=== PATIENT | male | born 1975 | race Caucasian/White ===

== ENCOUNTER 2022-04-17 11:28 | Emergency (ER) | payer OTHER ==
[2022-04-17 11:41] VITALS: TEMP 98.2
[2022-04-17] MEDS ORDERED: IPRATROPIUM-ALBUTEROL 3 ML NEB INHALATION STA (12:29)
[2022-04-17 12:46] LABS: Anisocytosis Slight; Basophils # (A) 0.1 k/uL (0-0.2); Basophils % (A) 1 %; Eosinophils # (A) 0.2 k/uL (0-0.7); Eosinophils % (A) 3 %; HCT 41.2 % (39.0-53.0); HGB 13.4 gm/dL (13.0-17.5); Hypochromasia Slight; Lymphocytes # (A) 2.4 k/uL (1.0-4.8); Lymphocytes % (A) 31 %; MCH 27.1 pg (25.0-35.0); MCHC 32.6 g/dL (31.0-37.0); MCV 83.1 fL (80.0-100.0); Mean Platelet Volume 7.2; Monocytes # (A) 0.6 k/uL (0-1.0); Monocytes % (A) 7 %; Neutrophils # (A) 4.1 k/uL (1.3-7.7); Neutrophils % (A) 54 %; Platelet Count 288 k/uL (150-450); RBC 4.96 m/uL (4.30-5.90); RDW 16.3 % (11.5-15.5); WBC 7.7 k/uL (3.8-10.6)
[2022-04-17 13:11] LABS: ALT 53 U/L (4-49); AST 61 U/L (17-59); African American GFR (CKD) >90 (>60 ml/min/1.73 sqM); Albumin 3.5 g/dL (3.5-5.0); Alkaline Phosphatase 147 U/L (38-126); Anion Gap 10 mmol/L; Blood Urea Nitrogen 14 mg/dL (9-20); Calcium 8.9 mg/dL (8.4-10.2); Carbon Dioxide 24 mmol/L (22-30); Chloride 102 mmol/L (98-107); Glucose 79 mg/dL (74-99); Non-African American GFR(CKD) >90 (>60 ml/min/1.73 sqM); Potassium 4.4 mmol/L (3.5-5.1); Sodium 136 mmol/L (137-145); Total Bilirubin 0.2 mg/dL (0.2-1.3); Total Protein 7.5 g/dL (6.3-8.2)
--- NOTE | 2022-04-17 13:21 | XR ---
EXAMINATION TYPE: XR chest 2V DATE OF EXAM: 04/17/2022 COMPARISON: None HISTORY: 46-year-old male with cough TECHNIQUE: PA and lateral views FINDINGS: The cardiomediastinal silhouette, aorta, and pulmonary vasculature are within normal limits. Focal mi dlung airspace disease, left greater than right. No pleural effusion or pneumothorax. 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 IMPRESSION: 1. Extensive left greater than right midlung airspace disease. Correlate for multifocal pneumonia. 2. 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
--- NOTE | 2022-04-17 13:30 | ED ---
General Adult HPI - General Chief complaint: Shortness of Breath Stated complaint: sob Time Seen by Provider: 04/17/22 11:58 Source: patient, RN notes reviewed Mode of arrival: EMS Limitations: no limitations - History of Present Illness Initial comments: 46-year-old male presents emergency department via EMS from [place] for a pulse ox. Patient states that he was discharged from [facility] 2 weeks ago after's having a long stay from [facility]. Patient states that he was discharged on 3 L of oxygen at 92%. Patient states he feels better than he ever has since discharge. He does admit that he didn't have his oxygen on because pi evelyn of tubing broke. Patient states that the nurse checked his pulse ox and [phone] and was sent here. Patient states that he does not have increasing shortness breath he's had no fever no night sweats. Patient is currently on Bactrim as prophylaxis for HIV infection. Patient denies any abdominal pain. He does admit that he has COPD and has a heavy smoker. - Related Data Previous Rx's Medication Instructions Recorded Albuterol Sulfate [Proair Hfa] 1 - 2 puff INHALATION Q4HR PRN 04/17/22 #8.5 gm Allergies Allergy/AdvReac Type Severity Reaction Status Date / Time No Known Allergies Allergy Verified 04/17/22 13:13 Review of Systems ROS Statement: Those systems with pertinent positive or pertinent negative responses have been documented in the HPI. ROS Other: All systems not noted in ROS Statement are negative. Past Medical History Additional Past Medical History / Comment(s): HIV + History of Any Multi-Drug Resistant Organisms: None Reported Past Surgical History: No Surgical Hx Reported Smoking Status: Former smoker Past Alcohol Use History: None Reported Past Drug Use History: Heroin General Exam Limitations: no limitations General appearance: alert, in no apparent distress Head exam: Present: atraumatic, normocephalic, normal inspection Eye exam: Present: normal appearance, PERRL, EOMI. Absent: scleral icterus, conjunctival injection, periorbital swelling ENT exam: Present: normal exam, normal oropharynx, mucous membranes moist Neck exam: Present: normal inspection, full ROM. Absent: tenderness, meningismus, lymphadenopathy Respiratory exam: Present: wheezes. Absent: normal lung sounds bilaterally, respiratory distress, rales, rhonchi, stridor Cardiovascular Exam: Present: regular rate, normal rhythm, normal heart sounds. Absent: systolic murmur, diastolic murmur, rubs, gallop, clicks Course Vital Signs 04/17/22 04/17/22 11:36 12:53 Temperature 98.2 F Pulse Rate 93 Respiratory 18 20 Rate Blood Pressure 157/84 O2 Sat by Pulse 95 Oximetry Medical Decision Making - Medical Decision Making Laboratory unremarkable, EKG unremarkable. Patient did have mild wheezing patient states that he feels improved from his some baseline. Patient did not have is actually not and reportedly had hypoxia though patient has no approximately there was no action currently. Patient was given breathing treatment as he had some mild wheezing. Patient x-ray did show some chronic pulmonary disease) left I do not have patient x-ray compared to does not have any hypoxia vitals are stable patient is requesting be discharged at this plan and to return for any persistent changes symptoms. - Lab Data Result diagrams: 04/17/22 12:38 04/17/22 12:38 Lab Results 04/17/22 04/17/22 04/17/22 Range/Units 12:38 12:38 12:46 WBC 7.7 (3.8-10.6) k/uL RBC 4.96 (4.30-5.90) m/uL Hgb 13.4 (13.0-17.5) gm/dL Hct 41.2 (39.0-53.0) % MCV 83.1 (80.0-100.0) fL MCH 27.1 (25.0-35.0) pg MCHC 32.6 (31.0-37.0) g/dL RDW 16.3 H (11.5-15.5) % Plt Count 288 (150-450) k/uL MPV 7.2 Neutrophils % 54 % Lymphocytes % 31 % Monocytes % 7 % Eosinophils % 3 % Basophils % 1 % Neutrophils # 4.1 (1.3-7.7) k/uL Lymphocytes # 2.4 (1.0-4.8) k/uL Monocytes # 0.6 (0-1.0) k/uL Eosinophils # 0.2 (0-0.7) k/uL Basophils # 0.1 (0-0.2) k/uL Hypochromasia Slight Anisocytosis Slight Sodium 136 L (137-145) mmol/L Potassium 4.4 (3.5-5.1) mmol/L Chloride 102 (98-107) mmol/L Carbon Dioxide 24 (22-30) mmol/L Anion Gap 10 mmol/L BUN 14 (9-20) mg/dL Creatinine 0.75 (0.66-1.25) mg/dL Est GFR (CKD-EPI)AfAm >90 (>60 ml/min/1.73 sqM) Est GFR (CKD-EPI)NonAf >90 (>60 ml/min/1.73 sqM) Glucose 79 (74-99) mg/dL Plasma Lactic Acid Al[place] 1.2 (0.7-2.0) mmol/L Calcium 8.9 (8.4-10.2) mg/dL Total Bilirubin 0.2 (0.2-1.3) mg/dL AST 61 H (17-59) U/L ALT 53 H (4-49) U/L Alkaline Phosphatase 147 H (38-126) U/L Total Protein 7.5 (6.3-8.2) g/dL Albumin 3.5 (3.5-5.0) g/dL Disposition Clinical Impression: COPD (chronic obstructive pulmonary disease), History of COVID-19 Disposition: HOME SELF-CARE Condition: Stable Instructions (If sedation given, give patient instructions): Bronchospasm (ED) Additional Instructions: Please return to the Emergency Department if symptoms worsen or any other concerns. Prescriptions: Albuterol Sulfate [Proair Hfa] 1 - 2 puff INHALATION Q4HR PRN #8.5 gm PRN Reason: difficulty in breathing Is patient prescribed a controlled substance at d/c from ED?: No Referrals: Pradip Monahan MD [Primary Care Provider] - 1-2 days Time of Disposition: 13:29
[2022-04-17 14:52] VITALS: BP 145/88; PULSE 91; RESP 20
== END 2022-04-17 14:33 | disposition home or self-care (01) ==
LOC: EC 11:28
DX: R06.02 Shortness of breath (principal); J44.9 Chronic obstructive pulmonary disease, unspecified; Z86.16 Personal history of COVID-19; Z87.891 Personal history of nicotine dependence; Z79.51 Long term (current) use of inhaled steroids
CPT/HCPCS: 36415; 71046; 80053; 83605; 85025; 93005; 94640; 99285